=== PATIENT | female | born 1940 | race African-American/Black ===

== ENCOUNTER 2019-06-15 20:08 | Observation (INO) | payer MEDICARE, BC ==
[2019-06-15] MEDS ORDERED: Acetaminophen 500 MG TAB ONE (20:42)
[2019-06-15 21:28] LABS: Troponin I Less than 0.010 ng/mL (< 0.028)
[2019-06-15] MEDS ORDERED: Acetaminophen 650 MG Suppository PR PRN (22:07)
[2019-06-15] MEDS ORDERED: Acetaminophen 325 MG TAB PO PRN (22:07)
--- NOTE | 2019-06-15 22:19 | PDOC.HHP ---
Hospitalist HPI - History of Present Illness Chest tightness History of Present Illness: Patient presents due to feeling generally unwell with multiple complaints including chest tightness that is present even while she is resting. She states her symptoms have been going on for the last two weeks. She had been laying around since 2-3 weeks ago and states she began to feel generally weak and unwell. She decided to try to get back onto a routine and get out of bed. She had been laying in bed most of the day. After becoming more active she noted she felt worse instead of better. Reports having intermittent tremors in both hands. States when it happens it is uncontrollable. Reports concern due to family history of Parkinson's. She also reports having pain in the back of her right knee. Has noted swelling in both legs, worse in the right leg. No fever. Has a chronic dry cough that remains unchanged. No hemoptysis. Has been afebrile. No sore throat. Denies any changes with her appetite. Denies any urinary symptoms but developed diarrhea today. She has had one loose stool. ED Course: Seen initially at [facility]. EKG done there showed T wave inversion in leads V3-V6. No previous work-up in the past. Repeat EKG here showed: Normal sinus rhythm at 77 bpm nonspecific T wave abnormality KS is 194 QRS is 90ms some T wave inversion in V3 and along with some artifact. Reports mild tension headache, given Tylenol 1 g in ED. Trop negative x 2. Labs notable for Creat 1.23, BUN 27, GFR 51. Potassium 3.0, BNP normal. LFTs normal. CXR reportedly unremarkable. 324 mg of Aspirin given. Hospitalist ROS - Review of Systems Constitutional: reports: weakness, malaise. denies: fever, chills, sweats, other Eyes: denies: pain, vision change, conjunctivae inflammation, eyelid inflammation, redness, other ENT: denies: ear pain, ear discharge, nose pain, nose discharge, nose congestion , mouth pain, mouth swelling, throat pain, throat swelling, other Respiratory: reports: cough (dry and chronic), dry. denies: shortness of breath , hemoptysis, SOB with excertion, pleuritic pain, sputum, wheezing, other Cardiovascular: reports: other (chest tightness, insists it is not pain but rather difficulty getting air in.). denies: chest pain, palpitations, orthopnea , paroxysmal noc. dyspnea, edema, light headedness Gastrointestinal: reports: diarrhea (x 1 today). denies: nausea, vomiting, abdominal pain, constipation, melena, hematochezia, other Genitourinary: denies: dysuria, frequency, incontinence, hematuria, retention, other Musculoskeletal: reports: back pain, other (Right posterior knee pain). denies : neck pain, shoulder pain, arm pain, hand pain, leg pain, foot pain Skin: denies: rash, lesions, aiyana, bruising, other Neurological: reports: other (bilateral hand tremor, intermittent x 2 weeks). denies: weakness, numbness, incoordination, change in speech, confusion, seizures - Medication Medications: HOME MEDICATIONS: amLODIPine FriJun 15, 2019 20:46 LAURA Keita Julia tablet : Strength - 10 mg : ORAL Patient Dose: unk mg Oral once a day. gabapentin FriJun 15, 2019 20:47 LARUA Keita Julia capsule : Strength - 100 mg : ORAL Patient Dose: unk mg Oral 2 times a day. tiZANidine FriJun 15, 2019 20:47 LAURA Keita Julia capsule : Strength - 2 mg : ORAL Patient Dose: unk mg Oral once a day (at bedtime). Lexapro FriJun 15, 2019 20:47 LAURA Keita Julia tablet : Strength - 10 mg : ORAL Patient Dose: unk mg Oral once a day. unk BP med FriJun 15, 2019 20:48 LAURA Keita Julia 2 unk BP meds. Lasix oral FriJun 15, 2019 20:48 LAURA Keita Julia tablet : Strength - 20 mg : ORAL Patient Dose: unk mg Oral As Needed. aspirin oral FriJun 15, 2019 20:48 LAURA Keita Julia tablet : Strength - 81 mg : ORAL Patient Dose: 81 mg Oral once a day. levothyroxine oral FriJun 15, 2019 20:49 LAURA Keita Julia tablet : Strength - 125 mcg : ORAL Patient Dose: unk mcg Oral once a day (in the morning). ALLERGIES: No known drug allergies. Hospitalist History - Past Medical History Cardiac: reports: HTN Heme/Onc: reports: Other (History of breast cancer) Endocrine: reports: Diabetes - Past Surgical History Past Surgical History: reports: Cholecystectomy, Hysterectomy, Mastectomy (right ), Other (Thyroidectomy) - Family History Family History: reports: Other (Parkinsons disease) - Social History Smoking Status: Never smoker Alcohol: reports: Occassional Drugs: reports: none Living Situation: With Family - Exam General Appearance: NAD Eye: PERRL, anicteric sclera ENT: dry oral mucosa Neck: supple, no lymphadenopathy Heart: RRR, normal peripheral pulses Respiratory: CTAB, no wheezes, no rales, no ronchi, normal chest expansion, no tachypnea Gastrointestinal: soft, non-tender, non-distended, normal bowel sounds, no guarding, no rigidity Extremities - other findings: slight lower leg swelling, right >left Skin: no rashes Neurological: cranial nerve grossly intact, normal sensation to touch, no weakness, no focal deficits Neurological - other findings: witnessed sudden resting tremor in right hand, lasted a a couple of minutes Musculoskeletal: normal tone, normal strength, no muscle wasting Psychiatric: normal affect, normal behavior, A&O x 3 Hospitalist Results - Labs Lab results: Troponin I Less than 0.010 ng/mL (< 0.028) 06/15/19 20:46 - Radiology Interpretation Chest x-ray Status: report reviewed by me (Unremarkable) Hospitalist H&P A/P - Problem (1) Chest tightness Code(s): R07.89 - OTHER CHEST PAIN Status: Acute (2) Inactivity Code(s): Z72.3 - LACK OF PHYSICAL EXERCISE Status: Acute (3) Posterior right knee pain Code(s): M25.561 - PAIN IN RIGHT KNEE Status: Acute (4) Diarrhea Code(s): R19.7 - DIARRHEA, UNSPECIFIED Status: Acute (5) Malaise Code(s): R53.81 - OTHER MALAISE Status: Acute (6) BLAYNE (acute kidney injury) Code(s): N17.9 - ACUTE KIDNEY FAILURE, UNSPECIFIED Status: Acute (7) Hypertension Code(s): I10 - ESSENTIAL (PRIMARY) HYPERTENSION Status: Chronic Qualifiers: Hypertension type: essential hypertension Qualified Code(s): I10 - Essential (primary) hypertension (8) Diabetes mellitus Code(s): E11.9 - TYPE 2 DIABETES MELLITUS WITHOUT COMPLICATIONS Status: Chronic Qualifiers: Diabetes mellitus type: type 2 Diabetes mellitus complication status: without complication (9) Chronic cough Code(s): R05 - COUGH Status: Chronic (10) Asthma Code(s): J45.909 - UNSPECIFIED ASTHMA, UNCOMPLICATED Status: Chronic - Plan Plan: D-dimer added on as well as venous doppler. PT/OT consulted. Gentle IV fluids. Monitor stools, given one episode of diarrhea today. UA/UCx. Check Mg+ and Thyroid function. Patient will remain on continuous cardiac monitoring. Continue to trend troponins. Continue daily aspirin. Echo and stress test. Monitor BP and glucose. CODE STATUS FULL Surrogate decision maker: her daughter Lali Delcid. Case discussed with Dr. Hall who agrees with plan as above.
[2019-06-15 22:31] VITALS: BMI 29.9
[2019-06-15] MEDS ORDERED: HumaLOG 300 UNITS/3 ML VIAL SC PRN ×2 (22:38)
[2019-06-15] MEDS ORDERED: Dextrose 50% Abboject 50 ML SYRINGE SLOW IVP PRN (22:38)
[2019-06-15] MEDS ORDERED: Dextrose 5% in Water 1,000 ML IV PRN (22:38)
[2019-06-15] MEDS ORDERED: Nitroglycerin 0.4 MG TAB (25 Tab Bottle) PO PRN (22:39)
[2019-06-15] MEDS ORDERED: Dextrose 5 %-0.45 % NaCl 1,000 ML IV SCH (22:45)
[2019-06-15 23:28] LABS: Free T4 (Free Thyroxine) 1.24 ng/dL (0.70-1.48); Thyroid Stimulating Hormone 0.1708 uIU/mL (0.35-4.94)
--- NOTE | 2019-06-15 23:41 | ULT ---
BILATERAL LOWER EXTREMITY VENOUS ULTRASOUND: 06/15/19 COMPARISON: None. HISTORY: Bilateral lower extremity pain and edema. TECHNIQUE: Multiplanar arrieta scale and color Doppler images were obtained in a bilateral lower extremity venous u ltrasound. Spectral analysis of the Doppler waveforms were performed. FINDINGS: The bilateral common femoral veins, profunda femoral veins, superficial femoral veins and popliteal v eins are normal in appearance without visible thrombus. These vessels demonstrate normal compression, flow, and augmentation. The posterior tibial vein and greater saphenous vein are also patent. IMPRESSION: No evidence of DVT. POS: EAA
[2019-06-15 23:53] LABS: Troponin I Less than 0.010 ng/mL (< 0.028)
[2019-06-16 01:22] LABS: Bacteria/HPF None Seen HPF (None Seen); Bilirubin Negative (Negative); Blood, Urine Negative (Negative); Clarity Clear (Clear); Glucose, Urine (Dipstick) Normal (Negative); Leukocyte 250 Leu/uL (Negative); Nitrite Negative (Negative); Protein, Urine (Dipstick) Negative (Neg-Trace); RBC/HPF 0-3 HPF (0-3); Squamous Epithelial 0-3 HPF (0-3); Urobilinogen Normal mg/dL (Less than 2)
[2019-06-16 01:25] LABS: Urine Culture Reflex Yes Yes
[2019-06-16 04:28] LABS: #Basophils 0.1 thou/uL (0.0-0.2); #Eosinphils 0.4 thou/uL (0.0-0.7); #Lymphocytes 2.4 thou/uL (1.20-3.40); #Monocytes 0.7 thou/uL (0.11-0.59); #Neutrophils 2.3 thou/uL (1.40-6.50); %Basophils 1.1 % (0.0-1.0); %Eosinophils 6.8 % (0.0-10.0); %Lymphocytes 40.1 % (21.0-51.0); %Monocytes 12.5 % (0.0-10.0); %Neutrophils 39.4 % (42.0-75.0); Hemoglobin 12.4 g/dL (12.0-16.0); Mean Corpuscular HGB CONC 33.3 g/dL (32.0-36.0); Mean Corpuscular Hemoglobin 28.2 pg (27.0-31.0); Mean Corpuscular Volume 84.8 fL (78.0-98.0); Mean Platelet Volume 7.8 fL (7.4-10.4); Platelet Count 225 thou/uL (130-400); Red Blood Cell (RBC) Count 4.38 mill/uL (4.20-5.40); White Blood Cell (WBC) Count 5.9 thou/uL (4.8-10.8)
[2019-06-16 04:51] LABS: Anion Gap 13 mmol/L (10-20); BUN (Urea Nitrogen) 21 mg/dL (9.8-20.1); Calc. Creatinine Clearance 70 mL/min (70-130); Calcium 8.9 mg/dL (7.8-10.44); Carbon Dioxide 26 mmol/L (23-31); Cardiac Risk 4.5 (Less than 4.5); Chloride 103 mmol/L (98-107); Cholesterol 203 mg/dl (< 200 Desired); Estimated GFR-MDRD 69; Glucose 112 mg/dL (83-110); HDL Cholesterol 45 mg/dL (>60 Neg Risk); LDL Cholesterol, Calculated 130 mg/dL; Sodium 139 mmol/L (136-145); Triglycerides 139 mg/dL (Less than 150)
[2019-06-16 04:56] LABS: Potassium 2.8 mmol/L (3.5-5.1)
[2019-06-16] MEDS: Potassium Chloride 20 MEQ in Premix Bag 1 BAG IVPB SCH ×2 (05:41→08:47)
[2019-06-16] MEDS ORDERED: Levothyroxine Sodium 112 MCG TAB PO SCH (06:00)
[2019-06-16] MEDS ORDERED: Potassium Chloride 20 MEQ TAB PO SCH (08:15)
[2019-06-16] MEDS: Potassium Chloride 20 MEQ TAB PO SCH ×3 (08:33→15:52)
[2019-06-16] MEDS: Famotidine/PF 20 mg/2ml Vial SLOW IVP SCH ×2 (08:34→09:57)
[2019-06-16] MEDS ORDERED: Triamterene/Hydrochlorothiazide 37.5 mg/25 mg Tablet PO SCH (09:00)
[2019-06-16] MEDS ORDERED: Escitalopram Oxalate 10 mg Tablet PO SCH (09:00)
[2019-06-16] MEDS ORDERED: Amlodipine 10 MG TAB PO SCH (09:00)
[2019-06-16] MEDS ORDERED: Aspirin 81 mg Enteric Coated Tablet PO SCH (09:00)
[2019-06-16] MEDS ORDERED: Regadenoson 0.4 MG/5 ML SYRINGE ONE (09:03)
--- NOTE | 2019-06-16 12:56 | NM ---
Exam: Nuclear medicine cardiac stress with EF and wall motion HISTORY: Chest pain COMPARISON: None TECHNIQUE: Patient was administered 11 mCi of technetium 99m sestamibi for rest imaging and 30.8 mm o f technetium 99 sestamibi for stress imaging. Cardiac gating is performed FINDINGS: Homogeneous distribution of radiotracer in the left ventricle. No reversibility or fixed defect TID is 0.4 End-diastolic volume is 56 mL End systolic volume is 4 mL Cardiac gating: Normal wall motion and thickening. 93% ejection fraction IMPRESSION: 1. Homogeneous distribution of radiotracer. No reversibility or fixed defect 2. 93% ejection fraction
[2019-06-16 14:29] LABS: Potassium 3.7 mmol/L (3.5-5.1)
[2019-06-16 15:51] VITALS: TEMP 97.6
--- NOTE | 2019-06-16 18:09 | DIS ---
DATE OF ADMISSION: 06/15/2019 DATE OF DISCHARGE: 06/16/2019 DISCHARGE DISPOSITION: Home. FOLLOWUP: 1. Follow up with primary care physician in 1 week. 2. Repeat basic metabolic profile after 1 week is recommended. Primary care physician advised to follow. 3. The patient was advised to follow up on the echocardiogram report. ALLERGIES: NO KNOWN DRUG ALLERGIES. DIAGNOSTIC TESTS: Potassium 2.8, at discharge it was 3.7. TSH was 0.170 with free T4 of 1.24. Fasting lipid showed triglyceride 139, cholesterol 203, LDL 130, HDL of 45. Urinalysis showed 7 to 10 wbc's without any bacteria. Urine cultures were negative at 12 hours. Bilateral lower extremity Doppler was negative. Nuclear medicine cardiac stress test was negative for reversible ischemia. Ejection fraction was 93%. TID was 0.4. BRIEF HOSPITAL COURSE: The patient is a 79-year-old female with hypertension, diabetes mellitus type 2, presented to the hospital with generalized weakness, chest tightness along with diarrhea of 1 day duration. Her diarrhea has resolved. She was found to have hypokalemia that was replaced. For chest pain, she underwent a Cardiolite stress test that was negative for reversible ischemia. Her troponins remained negative. She will benefit from repeat potassium check after 1 week. A prescription for potassium 10 mEq daily for next 10 days was provided. She was also advised to hold Maxzide for 1 to 2 days until the diarrhea resolves. She was advised to take probiotics on a daily basis. All other home medications were left unchanged. FINAL DIAGNOSES: 1. Chest discomfort, acute coronary syndrome ruled out. 2. Generalized weakness, probably due to electrolyte abnormality. 3. Diarrhea, suspected mild acute infectious gastroenteritis, resolved. She did not have any more episodes of diarrhea during this hospitalization. 4. Acute kidney injury. Creatinine improved to 0.95 from 1.28. 5. Hypertension. 6. Diabetes mellitus type 2. 7. Mild intermittent asthma. 8. Hypokalemia, replaced. 9. Dehydration. 10. Abnormal thyroid studies with TSH of 0.17 with free T4 of 1.24. 11. Obesity with a BMI of 30. The patient understands the above plan of care. Job ID: [id number]
[2019-06-16 19:49] VITALS: BP 144/75
[2019-06-16] MEDS ORDERED: tiZANidine HCl 4 MG TAB PO SCH (21:00)
[2019-06-16] MEDS ORDERED: Gabapentin 300 MG CAP PO SCH (21:00)
--- NOTE | 2019-06-18 14:08 | EKG ---
Test Reason : CHEST PAIN Blood Pressure : / mmHG Vent. Rate : 077 BPM Atrial Rate : 077 BPM P-R Int : 194 ms QRS Dur : 090 ms QT Int : 414 ms P-R-T Axes : 064 057 040 degrees QTc Int : 468 ms Normal sinus rhythm Nonspecific T wave abnormality Abnormal ECG Confirmed by BRITTA NOVA ([id number]), map editor SHERON JONES ([id number]) on 06/18/2019 2:08:03 PM Referred By: Confirmed By:BRITTA NOVA
== END 2019-06-16 18:25 | disposition home or self-care (01) ==
LOC: ERS 20:08 → 2NO 21:18
PROVIDERS: ADMIT Internal Medicine; ATTEND Internal Medicine
DX: R07.89 Other chest pain (principal); R53.1 Weakness; R19.7 Diarrhea, unspecified; N17.9 Acute kidney failure, unspecified; I10 Essential (primary) hypertension; E11.9 Type 2 diabetes mellitus without complications; J45.20 Mild intermittent asthma, uncomplicated; E86.0 Dehydration; E87.6 Hypokalemia; E89.0 Postprocedural hypothyroidism; M25.561 Pain in right knee; R05 Cough; E66.9 Obesity, unspecified; Z68.30 Body mass index [BMI] 30.0-30.9, adult; Z79.82 Long term (current) use of aspirin; Z79.84 Long term (current) use of oral hypoglycemic drugs; Z79.899 Other long term (current) drug therapy; Z72.3 Lack of physical exercise
CPT/HCPCS: 78452; 80048; 80061; 81001; 82962; 83735; 84132; 84439; 84443; 84484; 85025; 85379; 87086; 93005; 93017; 93306; 93970; 94760 ×2; 96365; 96366; 96375; 97139 ×3; 99285; G0378 ×3; J3480; 36415; 36416; J2785; S0028